=== PATIENT | male | born 1985 | race Caucasian/White ===

== ENCOUNTER → 2025-01-10 15:23 | Outpatient (CLI) | payer OTHER, SELFPAY ==
--- NOTE | 2025-01-10 16:19 | DI.RAD.S_ITS ---
PROCEDURE: XR CHEST 2V INDICATIONS: Sleep apnea, unspecified TECHNIQUE: 2 views of the chest were acquired. COMPARISON: None. FINDINGS: Surgical changes and devices: None. Lungs and pleura: Lungs are clear. No pleural effusions or pneumothorax. Mediastinum: Mediastinal contours are normal. Heart size is normal. Bones and chest wall: No suspicious bony abnormalities. Soft tissues appear unremarkable. IMPRESSION: No acute cardiopulmonary disease. Dictated by: Nehemiah Argueta RRA Interpreted: Ovidio Wiseman MD on 01/10/2025 at 19:50 Approved by: Ovidio Wiseman M.D. on 01/11/2025 at 17:34
== END ==
PROVIDERS: Referring Provider Chiropractor; Visit Provider Chiropractor
DX: G47.30 Sleep apnea, unspecified (principal); R06.2 Wheezing; R94.2 Abnormal results of pulmonary function studies
CPT/HCPCS: 71046; 94060